=== PATIENT | female | born 1930 | race Caucasian/White ===

== ENCOUNTER 2018-03-29 08:29 | Emergency (ER) | payer MEDICARE, BC ==
[~2018-03-29] VITALS: Ht 160 cm; Wt 73.0 kg
[~2018-03-29 08:29] MED LIST: AMLO2.5T2 PO; ESOM20CA PO; LEVO125T PO; ONDA8TAB9 PO; PHEN-786 PO
[2018-03-29 08:36] VITALS: BP 168/79
[2018-03-29] MEDS ORDERED: LIDOcaine 5% patch TP STA (08:49)
[2018-03-29] MEDS ORDERED: GABA-530 PO (08:57)
== END 2018-03-29 09:11 | disposition home or self-care (01) ==
LOC: ER 08:30
DX: M43.6 Torticollis (principal); M54.2 Cervicalgia; M25.512 Pain in left shoulder; E78.00 Pure hypercholesterolemia, unspecified; I10 Essential (primary) hypertension; Z90.710 Acquired absence of both cervix and uterus; Z88.8 Allergy status to other drugs, medicaments and biological substances; Z79.899 Other long term (current) drug therapy
CPT/HCPCS: 99283

== ENCOUNTER 2018-04-02 06:07 | Emergency (ER) | payer MEDICARE, BC ==
[~2018-04-02] VITALS: Ht 157.5 cm; Wt 73.0 kg
[~2018-04-02 06:07] MED LIST changes: +GABA-530 PO
[2018-04-02 06:19] VITALS: BP 161/73
[2018-04-02] MEDS ORDERED: COROTSUS OT (06:31)
[2018-04-02] MEDS ORDERED: AMOX-101 PO (06:31)
[2018-04-02] MEDS ORDERED: HYDR-3965 PO (06:31)
[2018-04-02] MEDS ORDERED: acetaminophen 325mg tablet PO ONE (07:25)
== END 2018-04-02 07:40 | disposition home or self-care (01) ==
LOC: ER 06:08
DX: H66.92 Otitis media, unspecified, left ear (principal); H60.92 Unspecified otitis externa, left ear; R21 Rash and other nonspecific skin eruption; E78.00 Pure hypercholesterolemia, unspecified; I10 Essential (primary) hypertension; Z90.710 Acquired absence of both cervix and uterus; Z88.8 Allergy status to other drugs, medicaments and biological substances; Z79.2 Long term (current) use of antibiotics; Z79.899 Other long term (current) drug therapy
CPT/HCPCS: 99283